=== PATIENT | male | born 1955 | race American Indian/Alaskan Native ===

== ENCOUNTER 2017-10-23 13:12 | Emergency (ER) | payer OTHER ==
[2017-10-23] MEDS ORDERED: MOTRIN PO ONE (15:47)
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
[2017-10-23 18:29] VITALS: BP 147/85
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
== END 2017-10-23 19:45 | disposition home or self-care (01) ==
LOC: ED 13:12
DX: S46.911A Strain of unspecified muscle, fascia and tendon at shoulder and upper arm level, right arm, initial encounter (principal); M50.30 Other cervical disc degeneration, unspecified cervical region; M79.1 Myalgia; E11.9 Type 2 diabetes mellitus without complications; V49.59XA Passenger injured in collision with other motor vehicles in traffic accident, initial encounter; Y93.89 Activity, other specified; Y92.89 Other specified places as the place of occurrence of the external cause; Y99.8 Other external cause status
CPT/HCPCS: 72040